=== PATIENT | male | born 2000 | race Caucasian/White ===

== ENCOUNTER 2020-02-24 19:23 | Emergency (ER) | payer OTHER, SELFPAY ==
--- NOTE | 2020-02-24 19:30 | DI.CT_ITS ---
EXAM: CT HEAD CERVICAL SPINE WO COMPARISON: No exams were available for comparison FINDINGS: CT examination of the cervical spine was performed without contrast administration. There is no evide nce of acute cervical spine fracture or dislocation. Tracheolaryngeal structures appear intact. No ce rvical mass or adenopathy. Intervertebral disc spaces are well maintained. Noncontrast cranial CT was performed. Ventricular system is normal in appearance. No evidence of acut e intracranial hemorrhage, mass effect, or midline shift. No calvarial fracture. The orbital and temp oral bone structures appear intact. IMPRESSION: No evidence of acute cervical spine injury. No evidence of acute intracranial injury. RADIATION DOSE DELIVERED: 1,737.85mGy.cm Total DLP 1,737.85mGy.cm Total DLP DATA REPOSITORY: All CT scans at this facility are submitted to the National Radiology Data Registry (NRDR) Dose Index Registry (DIR) with the [employer] (ACR). RADIATION OPTIMIZATION: All CT scans at this facility use at least one of these dose optimization te chniques: automated exposure control; mA and/or kV adjustment per patient size (includes targeted exa ms where dose is matched to clinical indication); or iterative reconstruction.
[2020-02-24] MEDS: Lactated Ringers 1,000 ML 1000 ML IV (19:34)
[2020-02-24] MEDS: ACETAMINOPHEN 1,000 MG/100 ML BTL 400 MG IVPB (19:35)
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
--- NOTE | 2020-02-24 19:43 | DI.CT_ITS ---
EXAM: CT CHEST/ABD/PEL W TECHNIQUE: CT examination of the chest, abdomen, and pelvis was performed with bolus infusion of 100 cc of Omnipaque 350. CT reconstructions of thoracic spine and lumbar spine were also obtained. COMPARISON: No exams were available for comparison FINDINGS: There is no evidence of a thoracic vascular injury. The lungs are clear. No pneumothorax or pleural effusion. No mediastinal hematoma. No adenopathy in the chest. Tracheobronchial tree appears intact. The liver, spleen, and pancreas appear normal. Gallbladder and bile ducts are normal. Adrenals and kidneys are unremarkable. No evidence of urinary tract injury or obstruction. No abdominal or pelvic vascular injury seen. No abdominal or pelvic adenopathy. No significant abdomi nal wall hernia or hematoma. No evidence of bowel injury. No fracture identified in the region surveyed. CT reconstructions of the thoracic spine and CT reconstructions of the lumbar spine show no evidence fracture or dislocation. IMPRESSION: No evidence of acute injury of the chest, abdomen, or pelvis. RADIATION DOSE DELIVERED: Total DLP Total DLP Total DLP DATA REPOSITORY: All CT scans at this facility are submitted to the National Radiology Data Registry (NRDR) Dose Index Registry (DIR) with the [employer] (ACR). RADIATION OPTIMIZATION: All CT scans at this facility use at least one of these dose optimization te chniques: automated exposure control; mA and/or kV adjustment per patient size (includes targeted exa ms where dose is matched to clinical indication); or iterative reconstruction.
[2020-02-24] MEDS: Ketorolac 30 MG/ML VIAL IVP (19:45)
--- NOTE | 2020-02-24 20:15 | DI.CT_ITS ---
EXAM: CT THORACIC LUMBAR SPINE REC TECHNIQUE: COMPARISON: No exams were available for comparison FINDINGS: CT reconstructions of the lumbar spine and CT reconstructions of the thoracic spine were obtained fro m raw data of chest/abdomen/pelvis CT. There is no evidence of acute fracture or dislocation. IMPRESSION: RADIATION DOSE DELIVERED: 1,014.79mGy.cm Total DLP
[2020-02-24] MEDS: LORazepam 2 MG/ML VIAL (20:41)
[2020-02-24 20:48] LABS: Abs Immature Grans 0.07 10^3/uL (0.0-0.06); Absolute Basophil Count 0.03 10^3/uL (0.0-0.2); Absolute Eosinophil Count 0.24 10^3/uL (0.0-0.7); Absolute Lymphocyte Count 3.93 10^3/uL (1.2-3.4); Absolute Monocyte Count 0.31 10^3/uL (0.1-0.8); Absolute Neutrophil Count 3.76 10^3/uL (1.2-6.7); Basophils % 0.4; Eosinophils % 2.9; HGB 15.3 g/dL (13.5-17.5); Immature Grans % 0.8; Lymphocytes % 47.1; MCH 29.4 pg (27.0-33.0); MCV 86.4 fL (80-95); MPV 9.5 fL (8.0-11.0); Monocytes % 3.7; Neutrophils % 45.1; Nucleated RBC 0 %; Platelet Count 308 10^3/uL (130-400); RBC 5.21 10^6/uL (4.36-5.78); RDW 11.9 % (11.8-14.1); RDW-SD 37.5 fL; WBC 8.34 10^3/uL (4.4-10.8)
[2020-02-24 20:59] LABS: ALT 27 U/L (16-63); AST 21 U/L (15-37); Alkaline Phosphatase 75 U/L (46-116); Anion Gap 12.2 mmol/L (3-11); BUN 13 mg/dL (7-18); Bilirubin, Total 0.3 mg/dL (0.2-1.0); CO2 22.8 mmol/L (21.0-32.0); CREATININE 1.29 mg/dL (0.70-1.30); Calcium 8.8 mg/dL (8.5-10.1); Chloride 107 mmol/L (98-107); ETHANOL BLOOD 277.2 mg/dL (<3); Glucose 101 mg/dL (74-106); Potassium 3.2 mmol/L (3.5-5.1); Sodium 142 mmol/L (136-145); Total Protein 7.8 g/dL (6.4-8.2)
[2020-02-24 21:23] VITALS: BP 128/74; PULSE 91; RESP 25; TEMP 36.9; O2SAT 100
[2020-02-24 21:51] LABS: Magnesium 2.2 mg/dL (1.8-2.4)
[2020-02-24 22:02] LABS: *AMPHETAMINES SCREEN URINE Negative (Negative); *BARBITURATES SCREEN URINE Negative (Negative); *BENZODIAZEPINES SCREEN URINE Negative (Negative); Cannabinoids THC POSITIVE (Negative); Cocaine Screen,Urine Negative (Negative); METHADONE URINE SCREEN Negative (Negative); OPIATES URINE SCREEN POSITIVE (Negative)
[2020-02-24 22:06] LABS: Tricyclic Antidepressants Negative (Negative)
[2020-02-24 23:01] VITALS: BP 128/72; PULSE 89; RESP 18; TEMP 36.9; O2SAT 98
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
== END 2020-02-24 22:55 ==
PROVIDERS: Emergency Provider Nurse Practitioner Acute Care
DX: T22.321A Burn of third degree of right elbow, initial encounter (principal); T21.24XA Burn of second degree of lower back, initial encounter; T31.21 Burns involving 20-29% of body surface with 10-19% third degree burns; X03.0XXA Exposure to flames in controlled fire, not in building or structure, initial encounter; Y90.8 Blood alcohol level of 240 mg/100 ml or more
CPT/HCPCS: 74177; 80053; 80307; 96361; 96365; 96375; 99285; 70450; 71260; 72125; 80320; 83735; 84484; 85025; J0131; J1885; J2060